=== PATIENT | female | born 1945 | race Caucasian/White ===

== ENCOUNTER → 2017-12-12 | Outpatient (CLI) | payer MEDICARE ==
[~2017-12-12] MED LIST: METO25TA35 PO; NONE PER PT
[2017-12-12 11:56] LABS: MICROSCOPIC NOT IND
[2017-12-12 12:00] LABS: BASOPHILS # (AUTO) 0.04 x10^3/uL (0-0.1); BASOPHILS % (AUTO) 1 % (0-1); EOSINOPHILS # (AUTO) 0.26 x10^3/uL (0-0.4); EOSINOPHILS % (AUTO) 3 % (1-7); LYMPHOCYTES # (AUTO) 2.12 x10^3/uL (1-3.4); LYMPHOCYTES % (AUTO) 23 % (22-44); MD NO; MEAN CORPUSCULAR HGB CONC 33.9 g/dL (32.4-35.8); MEAN CORPUSCULAR VOLUME 91.4 fL (80-100); MEAN PLATELET VOLUME 8.4 fL (7.4-10.4); MONOCYTES # (AUTO) 0.68 x10^3/uL (0.2-0.8); MONOCYTES % (AUTO) 7 % (2-9); NEUTROPHILS # (AUTO) 6.11 x10^3/uL (1.8-6.8); NEUTROPHILS % (AUTO) 66 % (42-75); PLATELET COUNT 331 x10^3/uL (130-400); RED BLOOD COUNT 5.27 x10^6/uL (3.82-5.3); RED CELL DISTRIBUTION WIDTH 15.1 % (9.6-15.2)
[2017-12-12 12:00] LABS: CULTURE INDICATED? NO
[2017-12-12 12:01] LABS: ALBUMIN 4.3 g/dL (3.4-5.0); ANION GAP 7 mmol/L (5-15); CALCIUM 8.8 mg/dL (8.5-10.1); CHLORIDE 105 mmol/L (98-107)
[2017-12-12 12:06] LABS: ALANINE AMINOTRANSFERASE 43 U/L (12-78); ALKALINE PHOSPHATASE 133 U/L (45-117); BILIRUBIN,TOTAL 0.4 mg/dL (0.2-1.0); TOTAL PROTEIN 7.9 g/dL (6.4-8.2)
== END | disposition home or self-care (01) ==
LOC: STAR 10:51
PROVIDERS: ATTEND Orthopaedic Surgery
DX: Z01.818 Encounter for other preprocedural examination (principal); M16.12 Unilateral primary osteoarthritis, left hip; M25.552 Pain in left hip
CPT/HCPCS: 36415; 80053; 81003; 85025; 87081; 87147; 93005

== ENCOUNTER 2017-12-19 06:07 | Inpatient (IN) | payer MEDICARE ==
[~2017-12-19] VITALS: Ht 157.5 cm; Wt 80.6 kg
[2017-12-19] MEDS ORDERED: FENTANYL PF 250 MCG/5ML ONE (06:40)
[2017-12-19] MEDS ORDERED: MIDAZOLAM 1 MG/ML, 2ML ONE (06:40)
[2017-12-19] MEDS ORDERED: GABAPENTIN 300 MG CAPSULE PO ONE (07:00)
[2017-12-19] MEDS ORDERED: ACETAMINOPHEN 500 MG TABLET PO ONE (07:00)
[2017-12-19] MEDS ORDERED: SCOPOLAMINE PATCH, 1.5MG PATCH.TD72 TD ONE (07:00)
[2017-12-19] MEDS ORDERED: ROPIvacaine/PF 0.2%, 20 ML ONE (07:06)
[2017-12-19] MEDS ORDERED: TRANEXAMIC ACID 100 MG/ML, 10ML ONE (07:06)
[2017-12-19] MEDS ORDERED: SODIUM CHLORIDE 0.9% 100 ML ONE (07:06)
[2017-12-19] MEDS ORDERED: KETOROLAC 60 MG/2 ML ONE (07:06)
[2017-12-19] MEDS ORDERED: VANCOMYCIN 1,000 MG ONE (07:06)
[2017-12-19] MEDS ORDERED: EPINEPHRINE 1 MG/ML, 1ML ONE (07:07)
[2017-12-19] MEDS ORDERED: LACTATED RINGERS 1,000 ML IV SCH (07:09)
[2017-12-19] MEDS ORDERED: DEXAMETHASONE 4 MG/ML, 1ML ONE (07:47)
[2017-12-19] MEDS ORDERED: ROCURONIUM 10 MG/ML,10ML ONE (07:47)
[2017-12-19] MEDS ORDERED: ONDANSETRON 2MG/ML, 2ML ONE (07:47)
[2017-12-19] MEDS ORDERED: CEFAZOLIN 1,000 MG ONE (07:47)
[2017-12-19] MEDS ORDERED: SUCCINYLCHOLINE 20 MG/ML, 10ML ONE (07:47)
[2017-12-19] MEDS ORDERED: hydrALAzine 20 MG/ML, 1ML ONE (07:47)
[2017-12-19] MEDS ORDERED: PROPOFOL 10 MG/ML, 20ML ONE (07:47)
[2017-12-19] MEDS ORDERED: PROMETHAZINE 25 MG/ML, 1ML IV PRN (08:30)
[2017-12-19] MEDS ORDERED: LABETALOL 5MG/ML, 20ML IV PRN (08:30)
[2017-12-19] MEDS ORDERED: METOCLOPRAMIDE 5 MG/ML, 2ML IV PRN (08:30)
[2017-12-19] MEDS ORDERED: KETOROLAC 30 MG/1 ML IV PRN (08:30)
[2017-12-19] MEDS ORDERED: OXYcodone 5 MG/5 ML ORAL.SOL UDC PO PRN (08:30)
[2017-12-19] MEDS ORDERED: ONDANSETRON 2MG/ML, 2ML IVPush PRN (08:30)
[2017-12-19] MEDS ORDERED: MEPERIDINE/PF 25MG/0.5ML IVPush PRN (08:30)
[2017-12-19] MEDS ORDERED: ALBUTEROL SULFATE 2.5 MG/3 ML NPPB PRN (08:30)
[2017-12-19] MEDS ORDERED: HYDROmorphone 1 MG/ML, 1ML IV PRN ×2 (08:30→10:00)
[2017-12-19] MEDS ORDERED: hydrALAzine 20 MG/ML, 1ML IV PRN (08:30)
[2017-12-19] MEDS ORDERED: ONDANSETRON 4 MG TABLET PO PRN (10:00)
[2017-12-19] MEDS ORDERED: HYDROcodone/APAP 5/325 TABLET PO PRN (10:00)
[2017-12-19] MEDS ORDERED: TRANEXAMIC ACID 1,000 MG in SODIUM CHLORIDE 0.9% 100 ML IVPB ONE (10:00)
[2017-12-19] MEDS ORDERED: ONDANSETRON 2MG/ML, 2ML IV PRN (10:00)
[2017-12-19] MEDS ORDERED: ALUMINUM/MAG/SIMETHICONE 30 ML UDC PO PRN (10:00)
[2017-12-19] MEDS ORDERED: SENNA/DOCUSATE TABLET PO PRN (10:00)
[2017-12-19] MEDS ORDERED: BISACODYL 10 MG SUPP PR PRN (10:00)
[2017-12-19] MEDS ORDERED: DIAZEPAM 5 MG TABLET PO PRN (10:00)
[2017-12-19] MEDS ORDERED: PROMETHAZINE 12.5 MG SUPP PR PRN (10:00)
[2017-12-19] MEDS ORDERED: DIPHENHYDRAMINE 25 MG CAPSULE PO PRN (10:00)
[2017-12-19] MEDS ORDERED: OXYcodone IR 5MG TABLET PO PRN (10:00)
[2017-12-19] MEDS ORDERED: PROMETHAZINE 25 MG/ML, 1ML IM PRN (10:00)
[2017-12-19] MEDS ORDERED: LORazepam 1MG TABLET PO PRN (10:00)
[2017-12-19] MEDS ORDERED: MAGNESIUM HYDROXIDE 8%, 30ML UDC PO PRN (10:00)
[2017-12-19] MEDS ORDERED: ZOLPIDEM 5MG TABLET PO PRN (10:00)
[2017-12-19] MEDS ORDERED: FENTANYL PF 100 MCG/2ML ONE (10:21)
[2017-12-19] MEDS ORDERED: OXYcodone 5 MG/5 ML ORAL.SOL UDC ONE (10:25)
[2017-12-19] MEDS: FENTANYL PF 100 MCG/2ML IV PRN ×2 (10:26→10:45)
[2017-12-19 11:29] VITALS: BP 143/73
[2017-12-19] MEDS ORDERED: ACETAMINOPHEN 325 MG TABLET PO PRN (11:30)
[2017-12-19 12:05] VITALS: BP 131/88
[2017-12-19] MEDS: CEFAZOLIN PMX 2GM/50ML 50 ML IVPB SCH ×2 (12:57→20:28)
[2017-12-19] MEDS: D5%-0.45% NACL 1,000 ML IV SCH ×2 (12:57→19:39)
[2017-12-19 20:00] VITALS: BP 147/85
[2017-12-19] MEDS: DOCUSATE 100 MG CAPSULE PO SCH (20:32)
[2017-12-19 22:29] VITALS: BP 179/89
[2017-12-20 00:42] VITALS: BP 99/67
[2017-12-20 05:07] VITALS: BP 112/74
[2017-12-20] MEDS: D5%-0.45% NACL 1,000 ML IV SCH ×2 (05:25→13:31)
[2017-12-20] MEDS ORDERED: DEXAMETHASONE 4 MG/ML, 1ML IVPush SCH (06:00)
[2017-12-20] MEDS ORDERED: ASPIRIN 81 MG TABLET EC PO SCH (06:00)
[2017-12-20 07:56] VITALS: BP 117/68
[2017-12-20] MEDS ORDERED: MULTIVITAMINS/MINERALS TABLET PO SCH (09:00)
[2017-12-20] MEDS: DOCUSATE 100 MG CAPSULE PO SCH (09:19)
[2017-12-20] MEDS ORDERED: KETOROLAC 30 MG/1 ML IV SCH (10:00)
[2017-12-20 13:10] VITALS: BP 127/67
[2017-12-20] MEDS ORDERED: SUMATRIPTAN 50 MG TABLET PO PRN (14:00)
== END 2017-12-20 16:00 | disposition home or self-care (01) | DRG 470 ==
LOC: ORIP 06:07 → 4NOR 11:15 → DCLOUNGE 12-20 15:45
PROVIDERS: ADMIT Orthopaedic Surgery; ATTEND Orthopaedic Surgery
PROC: 0SRB06Z Replacement of Left Hip Joint with Oxidized Zirconium on Polyethylene Synthetic Substitute, Open Approach (ICD-10-PCS; principal; 2017-12-19 08:30)
DX: M16.12 Unilateral primary osteoarthritis, left hip (principal); I10 Essential (primary) hypertension; Z96.641 Presence of right artificial hip joint; M25.752 Osteophyte, left hip
CPT/HCPCS: 36415; 72170; 85014; 85018; 86850; 86900; C1713; G0378; J0171; J0690; J1100; J1885; J2250; J2405; J2704; J2795; J3010; J3370; Q0162; C1776; J0330; J0360; J7120

== ENCOUNTER 2018-06-22 10:34 | Emergency (ER) | payer MEDICARE ==
[~2018-06-22] VITALS: Ht 157.5 cm; Wt 69.6 kg
--- NOTE | 2018-06-22 10:53 | NUR ---
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 WAS SEEN BY EMS THIS AM" LAST TIME HAPPENED HAD "BLADDER INFECTION"
--- NOTE | 2018-06-22 11:34 | NUR ---
PT TO CT SCAN
[2018-06-22 12:06] LABS: BASOPHILS # (AUTO) 0.02 x10^3/uL (0-0.1); BASOPHILS % (AUTO) 0 % (0-1); EOSINOPHILS # (AUTO) 0.02 x10^3/uL (0-0.4); EOSINOPHILS % (AUTO) 0 % (1-7); LYMPHOCYTES # (AUTO) 0.78 x10^3/uL (1-3.4); LYMPHOCYTES % (AUTO) 7 % (22-44); MD NO; MEAN CORPUSCULAR HEMOGLOBIN 30.4 pg (27.0-34.8); MEAN CORPUSCULAR HGB CONC 33.1 g/dL (32.4-35.8); MEAN CORPUSCULAR VOLUME 91.8 fL (80-100); MEAN PLATELET VOLUME 8.2 fL (7.4-10.4); MONOCYTES # (AUTO) 0.44 x10^3/uL (0.2-0.8); MONOCYTES % (AUTO) 4 % (2-9); NEUTROPHILS # (AUTO) 10.61 x10^3/uL (1.8-6.8); NEUTROPHILS % (AUTO) 89 % (42-75); PLATELET COUNT 290 x10^3/uL (130-400); RED BLOOD COUNT 4.94 x10^6/uL (3.82-5.3); RED CELL DISTRIBUTION WIDTH 16.5 % (9.6-15.2)
--- NOTE | 2018-06-22 12:06 | NUR ---
REPORT TO CUATE RANKIN, PLAN OF CARE DISCUSSED
--- NOTE | 2018-06-22 12:10 | NUR ---
report received from MASSIEL Peoples. pt a&ox4, neuro intact. pt denies pain. resps even and unlabored, awaiting CT, ua and lab results at this time. pt updated with poc.
[2018-06-22 12:12] LABS: MICROSCOPIC INDICATED
[2018-06-22 12:17] LABS: ALBUMIN 3.9 g/dL (3.4-5.0); ANION GAP 10 mmol/L (5-15); CALCIUM 9.3 mg/dL (8.5-10.1); CHLORIDE 106 mmol/L (98-107)
[2018-06-22 12:25] LABS: CULTURE INDICATED? YES
[2018-06-22 13:33] VITALS: BP 126/75
--- NOTE | 2018-06-22 13:34 | NUR ---
Pt a&ox4, neuro intact. bilateral product examiner equal, no drift, all extremity strength 4/5. face symmetrical, pupils equal, round and reactive. all monitors in place, nsr on public interviewer, rate 70s with no ectopy. awaiting dc paperwork from STEVE Mason, pt informed of poc. daughter at bedside.
--- NOTE | 2018-06-22 14:10 | NUR ---
pt given dc instructions and script. pt educated regarding omnicef and zofran rx. pt a&o, resps even and unlabored, no complaint at dc. pt amb to dc desk with steady gait, accompanied by daughter.
== END 2018-06-22 14:11 | disposition home or self-care (01) ==
LOC: ED 12:17
DX: N30.01 Acute cystitis with hematuria (principal); R41.0 Disorientation, unspecified; Z85.3 Personal history of malignant neoplasm of breast
CPT/HCPCS: 36415; 70450; 80048; 81001; 82040; 85025; 87086; 93005; 99284

== ENCOUNTER → 2019-02-05 | Outpatient (CLI) | payer MEDICARE ==
[~2019-02-05] MED LIST changes: +OMNIPAQUE 350 MG/ML, 150 ML BOTTLE ONE
== END | disposition home or self-care (01) ==
LOC: CFH 09:01
PROVIDERS: ATTEND Urology
DX: N28.1 Cyst of kidney, acquired (principal); J84.10 Pulmonary fibrosis, unspecified; K76.0 Fatty (change of) liver, not elsewhere classified; M51.36 Other intervertebral disc degeneration, lumbar region; Z96.89 Presence of other specified functional implants
CPT/HCPCS: 74178; Q9967